=== PATIENT | female | born 1955 | race Caucasian/White ===

== ENCOUNTER → 2016-11-19 | Outpatient (CLI) | payer OTHER ==
[~2016-11-19] MED LIST: CHOL20007 PO; CYAN500T PO; PRLSR20 PO
[2016-11-19 09:28] LABS: HEMATOCRIT 40.6 % (37-47); MEAN CELL VOLUME 87.3 fL (80-100); MEAN CORPUSCULAR HGB CONC 33.3 g/dl (32-36); MEAN PLATELET VOLUME 10.2 fL (7.4-10.4); PLATELET COUNT 267 K/uL (130-400); RED BLOOD COUNT 4.65 M/uL (4.2-5.4); WHITE BLOOD COUNT 5.73 K/uL (4.8-10.8)
[2016-11-19 09:50] LABS: ALT/SGPT 20 U/L (12-78); BLOOD UREA NITROGEN 11 mg/dl (7-18); BUN/CREATININE RATIO 13.3 (10-20); CALCIUM 9.2 mg/dl (8.5-10.1); CARBON DIOXIDE 27 mmol/L (21-32); CHLORIDE 104 mmol/L (98-107); CHOLESTEROL 216 mg/dl (0-200); CREATININE 0.84 mg/dl (0.60-1.20); GLUCOSE 85 mg/dl (70-99); POTASSIUM 3.7 mmol/L (3.5-5.1); SODIUM 141 mmol/L (136-145); TRIGLYCERIDES 157 mg/dl (0-150); VERY LOW DENSITY LIPOPROT CALC 31 mg/dl
[2016-11-19 10:00] LABS: ALKALINE PHOSPHATASE 77 U/L (45-117); AST/SGOT 19 U/L (15-37); CHOLESTEROL/HDL RATIO 3.9; HDL CHOLESTEROL 55 mg/dl; LDL CHOLESTEROL CALCULATED 130 mg/dl
== END | disposition home or self-care (01) ==
LOC: C.LAB 08:24
PROVIDERS: ATTEND Internal Medicine
DX: Z00.00 Encounter for general adult medical examination without abnormal findings (principal); Z86.79 Personal history of other diseases of the circulatory system; R06.09 Other forms of dyspnea

== ENCOUNTER → 2016-12-25 | Outpatient (CLI) | payer OTHER ==
--- NOTE | 2016-12-25 10:39 | DIAGNOSTIC IMAGING REPORT ---
TWO VIEW CHEST CLINICAL HISTORY: Dyspnea. FINDINGS: PA and lateral chest radiographs are obtained. No prior studies are available for comparison at the time of dictation. The cardiomediastinal silhouette is unremarkable. There is mild atherosclerotic calcification of the thoracic aorta. Patchy airspace opacities are seen in the upper lobes bilaterally. Miliary nodularity is suggested. No pleural effusion or pneumothorax is seen. The skeletal structures are osteopenic. The bony thorax appears intact. IMPRESSION: There is miliary pulmonary nodularity with more focal airspace consolidation identified in the upper lobes. The appearance is nonspecific and this could represent an infectious process such as pneumonia or mycobacterium, sarcoidosis, or less likely a pneumoconiosis. Clinical correlation will be essential. A chest CT is recommended for further assessment. Electronically signed by: Odin August M.D. 12/25/2016 10:38 AM Dictated Date/Time: 12/25/2016 10:34 AM
== END | disposition home or self-care (01) ==
LOC: C.RAD1850 10:18
PROVIDERS: ATTEND Internal Medicine Pulmonary Disease
DX: R06.02 Shortness of breath (principal); R91.8 Other nonspecific abnormal finding of lung field

== ENCOUNTER → 2016-12-29 | Outpatient (CLI) | payer OTHER ==
[~2016-12-29] MED LIST changes: +OPTIRAY 320 IV PRN
--- NOTE | 2016-12-29 08:01 | DIAGNOSTIC IMAGING REPORT ---
CT SCAN OF THE CHEST WITH IV CONTRAST CLINICAL HISTORY: Interstitial lung disease. COMPARISON STUDY: Chest x-ray dated 12/25/2016. TECHNIQUE: Following the IV administration of 93 cc of Optiray 320, CT scan of the thorax was performed from the thoracic inlet to the upper abdomen. Images are reviewed in the axial, sagittal, and coronal planes. IV contrast was administered without complication. CT DOSE: 202.19 mGycm FINDINGS: Thyroid: Mildly atrophic. Thoracic aorta: There is minimal atherosclerotic calcification of the thoracic aorta, which is normal in caliber and demonstrates standard 3-vessel arch anatomy. No dissection is seen. Pulmonary vasculature: The pulmonary trunk is normal in caliber. There are no filling defects identified in the central pulmonary vessels to indicate pulmonary embolus. Note that this examination was not protocoled for evaluation of the pulmonary arteries. Heart: The heart is normal in size and configuration, and without pericardial effusion. Lungs and pleural spaces: The trachea and central airways are clear. No airspace consolidation is seen typical for pneumonia and there is no pleural effusion. There are too numerous to count/miliary pulmonary nodules. The majority of these measure less than 5 mm. There are foci of masslike consolidation with architectural distortion seen in the upper lobes. An 8 mm pulmonary nodule seen at the left lung base image #219. There is no honeycombing or traction bronchiectasis. No significant subpleural reticulation is identified. Mediastinum: There are mildly enlarged mediastinal lymph nodes. Prevascular nodes and high pretracheal nodes measure up to 1.1 cm in short axis. Tonie: There are mildly enlarged bilateral hilar lymph nodes which measure up to 1.5 cm in short axis. Axillae: There is no axillary lymphadenopathy. Upper abdomen: There is a tiny hiatal hernia. Scattered hepatic cysts measure up to 1.8 cm. Additional subcentimeter hepatic hypodensities also likely represent cysts but are too small for definitive characterization. Skeletal structures: No lytic or blastic bony lesions are seen. IMPRESSION: 1. There are numerous/miliary pulmonary nodules, with larger foci of masslike consolidation and architectural distortion cyst in the upper lobes. The appearance is nonspecific but suggests pneumoconiosis with developing progressive massive fibrosis. Differential considerations would include sarcoidosis, or atypical infectious process such as mycobacterium. Neoplasm is considered much less likely. Clinical correlation will be essential and tissue sampling may be required for definitive characterization. 2. There is no airspace consolidation typical for pneumonia. No pleural effusion is seen. 3. Enlarged mediastinal and hilar lymph nodes are nonspecific and likely related to chronic lung disease. Electronically signed by: Odin August M.D. 12/29/2016 8:00 AM Dictated Date/Time: 12/29/2016 7:52 AM
== END | disposition home or self-care (01) ==
LOC: C.CTS 07:27
PROVIDERS: ATTEND Internal Medicine Pulmonary Disease
DX: J84.9 Interstitial pulmonary disease, unspecified (principal); R19.8 Other specified symptoms and signs involving the digestive system and abdomen; R59.1 Generalized enlarged lymph nodes

== ENCOUNTER → 2017-01-01 | Outpatient (CLI) | payer OTHER ==
[~2017-01-01] MED LIST changes: -OPTIRAY 320 IV PRN
[2017-01-01 16:47] LABS: PARTIAL THROMBOPLASTIN RATIO 1.1; PROTHROMBIN TIME (PATIENT) 10.9 SECONDS (9.0-12.0)
[2017-01-06 05:06] LABS: ANTI-CENTROMERE AB <1.0 NEG AI (<1.0 NEG); ANTI-SS-A <1.0 NEG AI (<1.0 NEG); ANTI-SS-B <1.0 NEG AI (<1.0 NEG); DNA ds CRITHIDIA NEGATIVE (NEGATIVE); QUANTIF TB AG-NIL 0.01 IU/ML; QUANTIFERON NIL 0.08 IU/ML; Sm Antibody <1.0 NEG AI (<1.0 NEG)
== END | disposition home or self-care (01) ==
LOC: C.LAB1850 15:23
PROVIDERS: ATTEND Internal Medicine Pulmonary Disease
DX: J84.9 Interstitial pulmonary disease, unspecified (principal)

== ENCOUNTER → 2017-01-07 | Outpatient (CLI) | payer OTHER ==
[2017-01-07 15:22] LABS: ALT/SGPT 20 U/L (12-78); BLOOD UREA NITROGEN 13 mg/dl (7-18); BUN/CREATININE RATIO 14.1 (10-20); CALCIUM 9.4 mg/dl (8.5-10.1); CARBON DIOXIDE 30 mmol/L (21-32); CHLORIDE 105 mmol/L (98-107); CREATININE 0.94 mg/dl (0.60-1.20); GLUCOSE 125 mg/dl (70-99); POTASSIUM 4.6 mmol/L (3.5-5.1); SODIUM 141 mmol/L (136-145)
[2017-01-07 15:24] LABS: ALKALINE PHOSPHATASE 84 U/L (45-117); AST/SGOT 20 U/L (15-37)
[2017-01-07 15:40] LABS: BASO % 0.4 %; BASO ABS # 0.03 K/uL (0-0.2); COMPLETE YES; EOS % 1.5 %; HEMATOCRIT 40.7 % (37-47); IG% 0.3 %; LYMPH % 22.7 %; LYMPH ABS # 1.54 K/uL (1.2-3.4); MEAN CELL VOLUME 88.9 fL (80-100); MEAN CORPUSCULAR HEMOGLOBIN 30.1 pg (25-34); MEAN CORPUSCULAR HGB CONC 33.9 g/dl (32-36); MEAN PLATELET VOLUME 10.2 fL (7.4-10.4); NEUT % 67.1 %; PLATELET COUNT 254 K/uL (130-400); RED BLOOD COUNT 4.58 M/uL (4.2-5.4); WHITE BLOOD COUNT 6.77 K/uL (4.8-10.8)
== END | disposition home or self-care (01) ==
LOC: C.LAB1850 13:38
PROVIDERS: ATTEND Internal Medicine Critical Care Medicine
DX: R06.09 Other forms of dyspnea (principal); R94.31 Abnormal electrocardiogram [ECG] [EKG]; R06.02 Shortness of breath; J84.9 Interstitial pulmonary disease, unspecified; D86.9 Sarcoidosis, unspecified; R91.8 Other nonspecific abnormal finding of lung field; Z86.79 Personal history of other diseases of the circulatory system

== ENCOUNTER 2017-01-20 09:11 | Day surgery (SDC) | payer OTHER ==
[2017-01-12 12:31] VITALS: BMI 23.0
[~2017-01-20] VITALS: Ht 167.6 cm; Wt 65.9 kg
--- NOTE | 2017-01-20 06:57 | History and Physical ---
History & Physical Date Jan 20, 2017. Chief Complaint Abnormal CT of the chest History of Present Illness The patient is a 61 year old female with complaints of abnormal CT of the chest: Past Medical/Surgical History 61-year-old female here for preop evaluation for abnormal CT scan: Abnormal CT scan: Patient has bilateral pulmonary infiltrates versus nodule versus mass as well as mediastinal lymphadenopathy. At this time appropriate workup based off ACCP/ATS recommendations would be for EBUS and electro magnetic navigation bronchoscopy. Multiple previous med analysis such as that noted in the vaginal thoracic disease: J Thorac Dis. 2015 February; 7(5): 799?809. doi: 10.3978/[email or web address] and others as well as multiple thoracic community is recommend both EBUS as well as electromagnetic navigational evaluation for patients with mediastinal lymphadenopathy especially those with peripheral nodules greater than 2 centimeters. Patient is appropriate candidate by her clinical history, findings on physical exam as well as those by CT scan. At this time I would like to move forward with EBUS/ ENB evaluation. Additional History Hepatic Disease: No Endocrine Disorder: No Kidney Disease: No Hypertension: No Heart Disease: No Bleeding Tendencies: No Infectious Diseases: No Allergies Coded Allergies: Amoxicillin (Verified Allergy, Mild, rash, 01/12/17) Omeprazole (Verified Allergy, Mild, bladder infection, 01/12/17) unknown Home Medications Scheduled Cholecalciferol (Vitamin D3), 1 TAB PO QAM Cyanocobalamin (Vitamin B-12), 500 MCG PO QAM Physical Examination Skin: warm/dry, no rash Eyes: normal inspection, EOMI, sclerae normal ENT: normal ENT inspection, pharynx normal Head: normocephalic, atraumatic Neck: supple, no adenopathy, trachea midline Respiratory/Chest: lungs clear, normal breath sounds, no respiratory distress Cardiovascular: regular rate, rhythm, no edema, no murmur Abdomen / GI: normal bowel sounds, non tender Back: normal inspection Extremities: normal inspection, normal range of motion Neurologic/Psych: no motor/sensory deficits, alert, normal reflexes, oriented x 3 ASA Classification: ASA Class II Plan of Treatment Flexible bronchoscopy with EBUS (TBNA + TTNA) along with radial probe with Tbbx and BAL
[~2017-01-20 09:11] MED LIST changes: +ATROPINE SULFATE 0.1 MG/ML 5ML SYR IV PRN; +EpHEDrine SULFATE INJ 50 MG/ML AMP IV PRN; +FENTANYL CITRATE INJ 50 MCG/1 ML 2 ML VIAL IV PRN; +HYDROmorphone INJ 1 MG/ML SYR IV PRN; +LABETALOL HCL IV 5 MG/ML 20ML IV PRN; +LACTATED RINGER'S 1000ML 1,000 ML IV SCH; +MEPERIDINE HCL 25 MG/ML CARP IV PRN; +ONDANSETRON INJ 2 MG/ML 2 ML VIAL IV PRN; -PRLSR20 PO
[2017-01-20 09:37] VITALS: BP 122/82; PULSE 81; TEMP 36.6; O2SAT 99; Ht 167.6 cm; Wt 65.9 kg
[2017-01-20] MEDS ORDERED: ROCURONIUM BROMIDE 10 MG/ML 5 ML VIAL ONE (10:14)
[2017-01-20] MEDS ORDERED: SUCCINYLCHOLINE CHLORIDE 20 MG/ML 10 ML VIAL IV ONE ×2 (10:14→12:11)
[2017-01-20] MEDS ORDERED: FENTANYL CITRATE INJ 50 MCG/1 ML 2 ML VIAL ONE ×2 (10:14→11:56)
[2017-01-20] MEDS ORDERED: PROPOFOL IV EMULSION 10 MG/ML 20 ML VIAL IV ONE (10:14)
[2017-01-20] MEDS ORDERED: MIDAZOLAM HCL 1 MG/ML 2ML VIAL ONE (10:14)
[2017-01-20] MEDS ORDERED: LIDOCAINE HCL 2% 2 ML VIAL (20MG/ML) ONE (10:14)
--- NOTE | 2017-01-20 10:21 | History & Physical Bridge Note ---
H&P Re-Evaluation Bridge Note: I have examined the patient, reviewed the History & Physical and in the interval since the performance of the History & Physical I have noted the following changes of clinical significance: No changes noted
[2017-01-20] MEDS ORDERED: DEXAMETHASONE SOD INJ 4 MG/ML VIAL ONE (11:10)
[2017-01-20] MEDS ORDERED: ONDANSETRON INJ 2 MG/ML 2 ML VIAL ONE (11:10)
[2017-01-20] MEDS ORDERED: EpHEDrine SULFATE 50MG/5ML SYR ONE (12:13)
--- NOTE | 2017-01-20 13:36 | Anesthesiology Progress Note ---
Anesthesia Post Op Note Date & Time Jan 20, 2017 at 13:36 Vital Signs Pain Intensity: 0 Vital Signs Past 12 Hours Date Time Temp Pulse Resp B/P Pulse Ox O2 Delivery O2 Flow Rate FiO2 01/20/17 13:20 89 20 113/66 100 Mask 10 01/20/17 13:10 93 20 119/79 100 Mask 10 01/20/17 13:02 36.1 96 20 98/87 100 Mask 10 01/20/17 09:37 36.6 81 20 122/82 99 Room Air Notes Mental Status: alert / awake / arousable, participated in evaluation Pt Amnestic to Procedure: Yes Nausea / Vomiting: adequately controlled Pain: adequately controlled Airway Patency, RR, SpO2: stable & adequate BP & HR: stable & adequate Hydration State: stable & adequate Anesthetic Complications: no major complications apparent
[2017-01-20 13:50] VITALS: BP 112/73; PULSE 77; TEMP 36.3; O2SAT 99
--- NOTE | 2017-01-20 14:16 | DIAGNOSTIC IMAGING REPORT ---
SINGLE VIEW CHEST CLINICAL HISTORY: Status post biopsy. FINDINGS: An AP, portable, upright chest radiograph is compared to study dated 12/25/2016 and correlated with chest CT dated 12/29/2016. The examination is degraded by portable technique and patient rotation. The cardiomediastinal silhouette is unremarkable. Miliary nodularity is similar to previous with more masslike opacities in the upper lobes. Superimposed airspace consolidation the right upper lobe likely represents postprocedural hemorrhage. The lower lobes appear clear. No large pleural effusion is identified. No pneumothorax is seen. The skeletal structures are osteopenic. The bony thorax is grossly intact. IMPRESSION: 1. No pneumothorax is identified post procedure. 2. New airspace opacities in the right upper lobe likely represent trace postprocedural hemorrhage. 3. Miliary nodularity and confluent upper lobe opacities are similar to previous and were better characterized by CT on 12/29/2016. Electronically signed by: Odin August M.D. 01/20/2017 2:13 PM Dictated Date/Time: 01/20/2017 2:11 PM
--- NOTE | 2017-01-20 14:17 | Bronchoscopy Procedure Note ---
Bronchoscopy Procedure Note Procedure: Bronchoscopy, EBUS, radial ultrasound, transtracheal-transbronchial needle aspirations, transbronchial forceps, bronchial alveolar lavage of the right upper and left upper lobes Consent: Obtained through the patient placed into the chart Preprocedural diagnosis: Bilateral pulmonary for traits with mediastinal lymphadenopathy Postprocedural diagnosis: Bilateral pulmonary for traits with minimal mediastinal lymphadenopathy Procedure time: Please refer to anesthesia notes Analgesia: GETA Sedation: GETA Procedure: The Olympus video bronchoscope, EBUS scope and radial probe wer used for this procedure Initially the bronchoscope was passed down through a size 4 [place] but then switched to a size 7.5 endotracheal tube later in the procedure. Glottis: Anatomically within normal limits Vocal cords: Proper abduction and abduction, anatomically within normal limits Subglottis/trachea/Haylee: Anatomically within normal limits, diffuse mucous secretions and erythema noted Right bronchial tree: Right mainstem bronchus: Anatomically within normal limits Right upper lobe: Anatomically within normal limits Bronchus intermedius: Anatomically within normal limits Right middle lobe: Anatomically within normal limits Right lower lobe: Anatomically within normal limits Findings: Diffuse mucous secretions and erythema noted Left bronchial tree: Left mainstem bronchus: Anatomically within normal limits Left upper lobe: Anatomically within normal limits Lingula: Anatomically within normal limits Left lower lobe: Anatomically within normal limits Findings: Diffuse mucous secretions and erythema noted EBUS and radial probe evaluation of the mediastinum and distal airways There were minimal mediastinal lymph nodes appreciated. There was a 9 mm Station 7 node with good notable characteristics. There was a 7 mm off for node with fatty infiltrate. EBUS TBNA/TTNA Station 7: Approximate 5 passes were performed with 3 noting lymphocytic tissue Station R4: Approximate 3 passes were obtained all noted to be bronchial epithelial cells Bronchial alveolar lavage: 60 cc performed of the left upper lobe approximately 40 cc returned of alveolar looking fluid 60 cc performed of the right upper lobe approximate 40 cc returned of alveolar looking fluid Transbronchial biopsies: Approximately 6 passes were made with 5 large pieces of transbronchial material returned Complications: None Postoperative chest x-ray and ultrasound evaluation of the thorax: Within normal limits Follow-up: Patient will be followed up in the [place] [facility]
[2017-01-20 14:20] VITALS: BP 105/79; PULSE 76; O2SAT 99
--- NOTE | 2017-01-20 14:24 | Discharge Instructions ---
Discharge Instructions Date of Service Jan 20, 2017. Admission Reason for Admission: Sarcoidosis, Lung Mass Discharge Discharge Diagnosis / Problem: bilateral pulmonary infiltrates with reactive mediastinal lymphadenopathy Discharge Goals Goal(s): Diagnostic testing Activity Recommendations Activity Limitations: resume your previous activity . Instructions / Follow-Up Instructions / Follow-Up Follow-up in the [place] [facility] Current Hospital Diet Patient's current hospital diet: Regular Diet Discharge Diet Recommended Diet: Regular Diet Procedures Procedures Performed: Endobronchial Ultrasound with Biopsy, transtracheal and transbronchial needle aspirations as well as bronchial lavage of the bilateral upper lobes and trans-bronchial biopsies Pending Studies Studies pending at discharge: yes List of pending studies: Microbiology, viral, histology, cytology and pathology Laboratory Results Lipid Panel Test 11/19/16 08:35 Range/Units Triglycerides Level 157 H 0-150 mg/dl Cholesterol Level 216 H 0-200 mg/dl HDL Cholesterol 55 mg/dl Cholesterol/HDL Ratio 3.9 LDL Cholesterol, Calculated 130 mg/dl Medical Emergencies . Who to Call and When: Medical Emergencies: If at any time you feel your situation is an emergency, please call 911 immediately. . Non-Emergent Contact Non-Emergency issues call your: Resin Shaver Call Non-Emergent contact if: temperature is above 101.5 . . "Provider Documentation" section prepared by Darin Keith. VTE Core Measure Inpt VTE Proph given/why not?: Treatment not indicated
[2017-01-20 14:50] VITALS: BP 106/65; PULSE 92; TEMP 36.6; O2SAT 97
== END 2017-01-20 15:15 | disposition home or self-care (01) ==
LOC: C.ACU 09:11
PROVIDERS: ATTEND Internal Medicine Critical Care Medicine
DX: R91.8 Other nonspecific abnormal finding of lung field (principal); D86.9 Sarcoidosis, unspecified; E55.9 Vitamin D deficiency, unspecified; Z86.59 Personal history of other mental and behavioral disorders; Z87.19 Personal history of other diseases of the digestive system; Z87.11 Personal history of peptic ulcer disease; Z82.49 Family history of ischemic heart disease and other diseases of the circulatory system; Z81.8 Family history of other mental and behavioral disorders; Z80.3 Family history of malignant neoplasm of breast

== ENCOUNTER → 2017-03-04 | Outpatient (CLI) | payer OTHER ==
[~2017-03-04] MED LIST changes: -ATROPINE SULFATE 0.1 MG/ML 5ML SYR IV PRN; -EpHEDrine SULFATE INJ 50 MG/ML AMP IV PRN; -FENTANYL CITRATE INJ 50 MCG/1 ML 2 ML VIAL IV PRN; -HYDROmorphone INJ 1 MG/ML SYR IV PRN; -LABETALOL HCL IV 5 MG/ML 20ML IV PRN; -LACTATED RINGER'S 1000ML 1,000 ML IV SCH; -MEPERIDINE HCL 25 MG/ML CARP IV PRN; -ONDANSETRON INJ 2 MG/ML 2 ML VIAL IV PRN
--- NOTE | 2017-03-04 09:58 | DIAGNOSTIC IMAGING REPORT ---
TWO VIEW CHEST CLINICAL HISTORY: Sarcoidosis. FINDINGS: PA and lateral chest radiographs are to study dated 01/20/2017 and correlated with chest CT dated 12/29/2016. The cardiomediastinal silhouette is unremarkable. Miliary nodularity is similar to previous with more masslike opacities in the upper lobes, left greater than right. There is relative sparing of the lower lobes. There is no evidence of superimposed airspace consolidation or pleural effusion. No pneumothorax is seen. The skeletal structures are osteopenic. The bony thorax is grossly intact. IMPRESSION: 1. No acute cardiopulmonary abnormality is identified. 2. Findings a miliary nodularity and confluent upper lobe opacities are similar to previous. Top differential considerations include sarcoidosis or a pneumoconiosis with developing progressive massive fibrosis. These findings were better characterized on the recent chest CT. Electronically signed by: Odin August M.D. 03/04/2017 9:56 AM Dictated Date/Time: 03/04/2017 9:51 AM
== END | disposition home or self-care (01) ==
LOC: C.RAD1850 09:42
PROVIDERS: ATTEND Internal Medicine Pulmonary Disease
DX: D86.9 Sarcoidosis, unspecified (principal)

== ENCOUNTER → 2017-05-10 | Outpatient (CLI) | payer OTHER ==
[2017-05-10 10:41] LABS: ALT/SGPT 24 U/L (12-78); BLOOD UREA NITROGEN 11 mg/dl (7-18); BUN/CREATININE RATIO 12.1 (10-20); CALCIUM 9.2 mg/dl (8.5-10.1); CARBON DIOXIDE 32 mmol/L (21-32); CHLORIDE 105 mmol/L (98-107); CREATININE 0.91 mg/dl (0.60-1.20); GLUCOSE 93 mg/dl (70-99); POTASSIUM 3.7 mmol/L (3.5-5.1); SODIUM 141 mmol/L (136-145)
[2017-05-10 10:43] LABS: ALB/GLOB RATIO 1.2 (0.9-2); ALKALINE PHOSPHATASE 59 U/L (45-117); AST/SGOT 15 U/L (15-37)
== END | disposition home or self-care (01) ==
LOC: C.LAB1850 09:17
PROVIDERS: ATTEND Internal Medicine Pulmonary Disease
DX: D86.9 Sarcoidosis, unspecified (principal)

== ENCOUNTER → 2017-06-11 | Outpatient (CLI) | payer OTHER ==
--- NOTE | 2017-06-11 09:04 | DIAGNOSTIC IMAGING REPORT ---
CHEST 2 VIEWS ROUTINE CLINICAL HISTORY: Sarcoidosis. COMPARISON STUDY: Chest radiograph March 04, [address] December 29, 2016. FINDINGS: No pneumothorax or pleural effusion is present. Cardiac size is normal. Mediastinal contours are normal. Reticulonodular interstitial thickening with upper lobe predominant nodular opacities have improved since exam of March 04, 2017. No superimposed consolidation is identified. Pulmonary vascularity is normal. IMPRESSION: Mild interval improvement in reticulonodular interstitial thickening and upper lobe predominant nodular opacities consistent with the history of sarcoidosis. Electronically signed by: Cliff Kohler M.D. 06/11/2017 9:03 AM Dictated Date/Time: 06/11/2017 8:59 AM
== END | disposition home or self-care (01) ==
LOC: C.RAD1850 08:36
PROVIDERS: ATTEND Internal Medicine Pulmonary Disease
DX: D86.9 Sarcoidosis, unspecified (principal)

== ENCOUNTER → 2017-08-16 | Outpatient (CLI) | payer OTHER | END | disposition home or self-care (01) | LOC: C.LAB1850 12:21 | PROVIDERS: ATTEND Internal Medicine | DX: E55.9 Vitamin D deficiency, unspecified (principal) ==

== ENCOUNTER → 2018-01-07 | Outpatient (CLI) | payer OTHER ==
[2018-01-07 15:38] LABS: BLOOD UREA NITROGEN 10 mg/dl (7-18); CALCIUM 9.7 mg/dl (8.5-10.1); CARBON DIOXIDE 27 mmol/L (21-32); CREATININE 0.85 mg/dl (0.60-1.20); GLUCOSE 120 mg/dl (70-99); POTASSIUM 3.9 mmol/L (3.5-5.1); SODIUM 139 mmol/L (136-145)
== END | disposition home or self-care (01) ==
LOC: C.LAB1850 11:45
PROVIDERS: ATTEND Internal Medicine Pulmonary Disease
DX: D86.0 Sarcoidosis of lung (principal)